=== PATIENT | female | born 1995 | race Caucasian/White ===

== ENCOUNTER 2016-10-29 00:50 | Inpatient (IN) | payer MEDICAID ==
[~2016-10-29] VITALS: Ht 165.1 cm; Wt 93.4 kg
[~2016-10-29 00:50] MED LIST: IBUP-2213 PO; PREN-385 PO
[2016-10-29] MEDS ORDERED: CARBOPROST 250 MCG/ML AMP IM PRN (01:05)
[2016-10-29] MEDS ORDERED: LACTATED RINGERS 1,000 ML IV SCH (01:05)
[2016-10-29] MEDS ORDERED: AMPICILLIN 2,000 MG in NACL 0.9% MINI-BAG PLUS 100 ML IV SCH (01:05)
[2016-10-29] MEDS ORDERED: METHYLERGONOVINE 0.2 MG/ML AMP IM PRN ×2 (01:05→04:55)
[2016-10-29] MEDS ORDERED: OXYTOCIN 10 UNITS/ML VIAL IM SCH (01:05)
[2016-10-29] MEDS ORDERED: NACL 0.9% 1,000 ML IV SCH (01:05)
[2016-10-29] MEDS ORDERED: PROMETHAZINE 25 MG/ML VIAL IVP PRN (01:05)
[2016-10-29] MEDS ORDERED: NALBUPHINE HYDROCHLORIDE 10 MG/ML VIAL IVP PRN (01:05)
[2016-10-29 01:52] LABS: BASOPHILS % (AUTO) 0.3 % (0.0-2.0); EOSINOPHILS % (AUTO) 0.2 % (0.0-4.0); HEMATOCRIT 34.7 % (36-48); HEMOGLOBIN 11.1 g/dL (12.0-16.0); LYMPHOCYTES # (AUTO) 1.3 K/uL (2.5-16.5); LYMPHOCYTES % (AUTO) 12.1 % (20.5-51.1); MEAN CORPUSCULAR HEMOGLOBIN 25 pg (27-31); MEAN CORPUSCULAR HGB CONC 32 g/dL (33-37); MEAN CORPUSCULAR VOLUME 78 fL (80-94); MONOCYTES # (AUTO) 0.5 K/uL (0.8-1.0); MONOCYTES % (AUTO) 4.4 % (1.7-9.3); NEUTROPHILS # (AUTO) 9.3 K/uL (1.8-7.7); PLATELET COUNT (AUTO) 191 K/uL (140-450); RED BLOOD CELL COUNT(AUTO) 4.44 MIL/uL (4.20-5.40); RED CELL DISTRIBUTION WIDTH 14.1 % (11.6-13.7); WHITE BLOOD COUNT (AUTO) 11.1 K/uL (4.5-11.0)
[2016-10-29] MEDS ORDERED: AMPICILLIN 2,000 MG VIAL ONE (01:56)
[2016-10-29 01:59] LABS: APPEARANCE,URINE CLEAR (CLEAR); BILIRUBIN,URINE NEGATIVE (NEGATIVE); BLOOD, URINE NEGATIVE (NEGATIVE); COLOR,URINE YELLOW (YELLOW); LEUKOCYTE ESTERASE ,URINE NEGATIVE (NEGATIVE); NITRITE, URINE NEGATIVE (NEGATIVE); PROTEIN,URINE NEGATIVE (NEGATIVE); UGLUCOSE NEGATIVE (NEGATIVE)
[2016-10-29 02:00] VITALS: BP 141/85
[2016-10-29 02:06] LABS: AMPHETAMINE, URINE NEG. ng/ml (NEG <=1000); BARBITURATE, URINE NEG. ng/ml (NEG <=200); BENZODIAZEPINE, URINE NEG. ng/mL (NEG <=200); CANNABINOID, URINE NEG. ng/mL (NEG <=50); COCAINE, URINE NEG. ng/mL (NEG <=300); OPIATE, URINE NEG. ng/mL (NEG <=2000); PHENCYCLIDINE SCREEN,URINE NEG. ng/mL (NEG <=25)
[2016-10-29 02:09] LABS: RBC,URINE 0-3 /HPF (0-5); WBC,URINE 0-3 /HPF (0-5)
[2016-10-29 02:10] LABS: BACTERIA,URINE RARE /HPF (None Seen)
[2016-10-29] MEDS ORDERED: NALBUPHINE HYDROCHLORIDE 10 MG/ML VIAL ONE (02:39)
[2016-10-29] MEDS ORDERED: PROMETHAZINE 25 MG/ML VIAL ONE (02:40)
[2016-10-29] MEDS ORDERED: LIDOCAINE 1% 500 MG/50 ML VIAL INJ SCH (03:05)
[2016-10-29] MEDS ORDERED: OXYTOCIN 20 UNITS/LR PREMIX 1,000 ML IV ONE (03:49)
[2016-10-29] MEDS ORDERED: LIDOCAINE 1% 50 ML ONE (03:50)
[2016-10-29] MEDS ORDERED: OXYTOCIN 10 UNITS/ML VIAL ONE (03:50)
[2016-10-29] MEDS ORDERED: BENZOCAINE/MENTHOL 20%-0.5% 60 GM CAN TP PRN (04:55)
[2016-10-29] MEDS ORDERED: MEASLES, MUMPS, AND RUBELLA 1 VIAL SQVAC PRN (04:55)
[2016-10-29] MEDS ORDERED: HYDROcodone/APAP 5/325 MG 1 TAB TAB PO PRN (04:55)
[2016-10-29] MEDS ORDERED: OXYTOCIN 10 UNITS/ML VIAL IM PRN (04:55)
[2016-10-29] MEDS ORDERED: IBUPROFEN 800 MG TAB PO PRN (04:55)
[2016-10-29] MEDS ORDERED: oxyCODONE/APAP 5/325 MG 1 TAB TAB PO PRN (04:55)
[2016-10-29] MEDS ORDERED: WITCH HAZEL 40 PAD PACKAGE TP PRN (04:55)
[2016-10-29] MEDS ORDERED: TEMAZEPAM 15 MG CAP PO PRN (04:55)
[2016-10-29] MEDS ORDERED: OXYTOCIN 20 UNITS/LR PREMIX 1,000 ML IV SCH (06:30)
--- NOTE | 2016-10-29 08:52 | NUR ---
PATIENT HAS BEEN SCREENED AND CATEGORIZED LOW NUTRITION RISK. PATIENT WILL BE SEEN WITHIN 7 DAYS OF ADMISSION. 11/04/[address]
[2016-10-29] MEDS ORDERED: DOCUSATE SOD/SENNA 50/8.6 MG 1 TAB PO SCH (21:00)
[2016-10-30 06:45] LABS: HEMOGLOBIN 9.3 g/dL (12.0-16.0)
[2016-10-30] MEDS ORDERED: IBUP-1842 PO (15:32)
== END 2016-10-30 16:45 | disposition home or self-care (01) | DRG 560 ==
LOC: MLD 00:50 → MFCC 08:00
PROVIDERS: ADMIT Obstetrics & Gynecology; ATTEND Obstetrics & Gynecology
PROC: 10E0XZZ Delivery of Products of Conception, External Approach (ICD-10-PCS; principal; 2016-10-29)
PROC: 3E0234Z Introduction of Serum, Toxoid and Vaccine into Muscle, Percutaneous Approach (ICD-10-PCS; 2016-10-29)
DX: O77.0 Labor and delivery complicated by meconium in amniotic fluid (principal); Z23 Encounter for immunization; Z37.0 Single live birth; Z3A.39 39 weeks gestation of pregnancy
CPT/HCPCS: 36415; 59409; 76805; 80305; 81001; 85018; 85025; 86592; 86762; 86886; 86900; 86901; 87340; 87653-90; 90715; J0290; J2001; J2300; J2550; J2590; J7120; Q0092